=== PATIENT | male | born 1985 | race Caucasian/White ===

== ENCOUNTER 2018-06-03 18:13 | Emergency (ER) | payer OTHER ==
[~2018-06-03] VITALS: Ht 177.8 cm; Wt 64.1 kg
[2018-06-03 18:18] VITALS: BP 131/87
[2018-06-03] MEDS ORDERED: DIPH,PERTUSS(ACELL),TET VAC/PF 0.5 ML IM-VACC ONE ×2 (18:30→18:53)
[2018-06-03] MEDS ORDERED: BACITRACIN ZINC OINT 500U/GM, 0.9 GM ONE (19:03)
== END 2018-06-03 19:12 | disposition home or self-care (01) ==
LOC: ED 19:06
DX: S01.01XA Laceration without foreign body of scalp, initial encounter (principal); W22.8XXA Striking against or struck by other objects, initial encounter; Y93.89 Activity, other specified; Y99.0 Civilian activity done for income or pay; Y92.69 Other specified industrial and construction area as the place of occurrence of the external cause
CPT/HCPCS: 12031; 90471; 90715